=== PATIENT | male | born 1955 | race Hispanic/Latino ===

== ENCOUNTER 2021-11-17 09:18 | Emergency (ER) | payer MEDICARE ==
[~2021-11-17] VITALS: Ht 160 cm; Wt 75.0 kg
[~2021-11-17 09:18] MED LIST: NAPROSYN375 MG PO; NAPROSYN500 MG PO; NO MEDS
[2021-11-17 09:28] VITALS: BP 138/77
[2021-11-17 09:30] VITALS: BP 145/66
[2021-11-17 10:00] VITALS: BP 133/73
[2021-11-17 10:30] VITALS: BP 136/76
[2021-11-17 11:01] VITALS: BP 140/75
[2021-11-17 11:30] VITALS: BP 131/73
== END 2021-11-17 11:35 | disposition home or self-care (01) ==
LOC: ED 09:18
DX: M77.31 Calcaneal spur, right foot (principal)

== ENCOUNTER 2024-03-21 07:34 | Day surgery (SDC) | payer MEDICARE ==
[~2024-03-21] VITALS: Ht 160 cm; Wt 80.7 kg
[~2024-03-21 07:34] MED LIST changes: +ADVIL200 MG PO; +FENOFIBRATE PO; +MELOXICAM7.5 MG PO; +ROSUVASTATIN CA10 MG PO; +[UNRECOGNIZED DRUG - OTHER] PO
[2024-03-21] MEDS ORDERED: LACTATED RINGER'S 1,000 ML IV ONE (07:36)
[2024-03-21] MEDS ORDERED: FAMOTIDINE 10MG/ML 2ML SDV IV ONE (07:36)
[2024-03-21 09:36] VITALS: BP 132/79
[2024-03-21] MEDS ORDERED: LIDOCAINE HCL 2% 2ML SDV IV ONE (14:54)
[2024-03-21] MEDS ORDERED: PROPOFOL 200 MG/20 ML VIAL IV ONE (14:54)
== END 2024-03-21 11:31 | disposition home or self-care (01) ==
LOC: ENDO 07:34
PROVIDERS: ATTEND Surgery
PROC: 0DJD8ZZ Inspection of Lower Intestinal Tract, Via Natural or Artificial Opening Endoscopic (ICD-10-PCS; principal; 2024-03-21)
DX: Z12.11 Encounter for screening for malignant neoplasm of colon (principal); K57.30 Diverticulosis of large intestine without perforation or abscess without bleeding; K64.8 Other hemorrhoids; E78.00 Pure hypercholesterolemia, unspecified; K40.90 Unilateral inguinal hernia, without obstruction or gangrene, not specified as recurrent